=== PATIENT | female | born 1970 | race American Indian/Alaskan Native ===

== ENCOUNTER 2020-04-13 13:16 | Outpatient (CLI) | payer OTHER ==
--- NOTE | 2020-04-13 15:03 | Vascular Lab Report ---
DUPLEX DOPPLER LOWER EXTREMITY VEINS, RIGHT INDICATION: PAIN AND SWELLING RIGHT. Right lower extremity pain and swelling TECHNIQUE: Duplex doppler imaging was performed through the veins of the right lower extremity using venous comp ression and other maneuvers. COMPARISON: None available. FINDINGS: Common Femoral vein: Negative. Superficial Femoral vein: Negative. Popliteal vein: Negative. Calf veins: Negative. Additional findings: None. IMPRESSION: 1. No sonographic evidence for DVT in the right lower extremity. Signer Name: Howie Grimm MD Signed: 04/13/2020 2:59 PM Workstation Name: [id number]
== END 2020-04-13 13:17 | disposition home or self-care (01) ==
LOC: VAS 13:16
PROVIDERS: ATTEND Podiatrist Foot & Ankle Surgery
DX: M79.89 Other specified soft tissue disorders (principal); M79.662 Pain in left lower leg